=== PATIENT | male | born 1985 | race Caucasian/White ===

== ENCOUNTER 2021-09-26 17:23 | Observation (INO) | payer MEDICAID ==
[~2021-09-26] VITALS: Ht 175.3 cm; Wt 45.0 kg
[~2021-09-26 17:23] MED LIST: DOXYCYCL HYC100 MG PO; MUPIROCIN2 % EX
--- NOTE | 2021-09-26 17:48 | NUR ---
PT ESCORTED TO ROOM 16 FOR EVAL OF DIARRHEA AND WEAKNESS
[2021-09-26 19:37] LABS: HEMOGLOBIN 10.2 g/dl (14.0-18.0); IMMATURE GRANULOCYTES 1.4 % (0.0-5.0); MEAN CELL VOLUME 83.6 fL CALC (80.0-100.0); MEAN CORPUSCULAR HGB 28.4 pG CALC (26.0-32.0); NEUT# 7.04 thou/uL (1.82-7.42); RED BLOOD COUNT 3.59 mill/uL (4.70-6.10); RED CELL DISTRI WIDTH 13.7 % (11.5-15.5)
[2021-09-26 19:38] LABS: URINE BILIRUBIN - DIPSTICK NEGATIVE (NEGATIVE); URINE BLOOD DIPSTICK TRACE-INTACT (NEGATIVE); URINE COLOR YELLOW; URINE GLUCOSE - DIPSTICK NEGATIVE (NEGATIVE); URINE KETONE NEGATIVE (NEGATIVE); URINE LEUK ESTERASE NEGATIVE (NEGATIVE); URINE PH 6.5 (4.5-8.0); URINE PROTEIN - DIPSTICK NEGATIVE (NEG-TRACE); URINE SPECIFIC GRAVITY 1.015; URINE UROBILINOGEN - DIPSTICK 0.2 E.U./dL (0.2)
[2021-09-26 19:41] LABS: URINE NITRITE - DIPSTICK NEGATIVE (Negative)
--- NOTE | 2021-09-26 19:46 | NUR ---
PATIENT WAITING IN BED FOR RESULTS. RECEIVING FLUIDS AND IV MEDS.
[2021-09-26 19:53] LABS: ALBUMIN 3.5 g/dL (3.2-5.0); ALKALINE PHOSPHATASE 1139 u/l (38-126); ANION GAP 11 (6-22 (CALC)); BILIRUBIN, TOTAL 0.6 mg/dL (0.0-1.4); BUN 6 mg/dL (9-20); BUN/CREATININE RATIO 10 (12-20 (CALC)); CARBON DIOXIDE 23 mmol/l (22-30); CHLORIDE 101 mmol/l (95-108); CREATININE 0.7 mg/dL (0.7-1.3); GFR > 60 ML/MIN (>=60 (CALC)); GFR FOR AFR.AMER. > 60 ML/MIN (>=60 (CALC)); LIPASE 310 u/l (23-300); POTASSIUM 2.8 mmol/l (3.5-5.1); SGOT/AST 177 u/l (17-59); SODIUM 132 mmol/l (137-146); TOTAL PROTEIN 7.3 g/dL (6.3-8.2)
--- NOTE | 2021-09-26 22:31 | NUR ---
PT AWARE OF PLAN OF CARE; STATES NO FURTHER ASSISTANCE AT THIS TIME
--- NOTE | 2021-09-26 22:41 | NUR ---
PT TO CT
--- NOTE | 2021-09-27 00:50 | NUR ---
Admission Note Report Given to: JOSTIN Transported by: Wheelchair X Stretcher Transported with: X Nurse Transporter X Patent IV [employer] Manager Location: ICU X [facility]
--- NOTE | 2021-09-27 01:00 | NUR ---
RECEIVED INTO ICU BED 1 FROM ER VIA STRETCHER. AMBULATED FROM STRETCHER TO BED WITHOUT DIFFICULTY. ASSISTED INTO BED AND PLACED ON MARINE FIREMAN SHOWING SR-ST. ORIENTED TO SURROUNDINGS. CALL SANTO IN REACH.
[2021-09-27 01:20] VITALS: BP 114/65
--- NOTE | 2021-09-27 02:00 | NUR ---
RESTING WITH EYES CLOSED. RESP NON-LABORED. SR ON MONITOR.
[2021-09-27 04:00] VITALS: BP 117/69
--- NOTE | 2021-09-27 04:00 | NUR ---
RESTING WITHOUT COMPLAINTS. VSS. RESP EVEN AND UNLABORED. SR ON MONITOR.
[2021-09-27 05:39] LABS: HEMATOCRIT 27.1 % (39.0-50.0); HEMOGLOBIN 9.1 g/dl (14.0-18.0); MEAN CORPUSCULAR HGB 28.5 pG CALC (26.0-32.0); MEAN CORPUSCULAR HGB CONC 33.6 g/dL CAL (32.0-36.0); RED BLOOD COUNT 3.19 mill/uL (4.70-6.10); RED CELL DISTRI WIDTH 13.8 % (11.5-15.5)
[2021-09-27 05:48] LABS: BUN 4 mg/dL (9-20); BUN/CREATININE RATIO 5 (12-20 (CALC)); CARBON DIOXIDE 21 mmol/l (22-30); CREATININE 0.7 mg/dL (0.7-1.3); GFR > 60 ML/MIN (>=60 (CALC)); GFR FOR AFR.AMER. > 60 ML/MIN (>=60 (CALC)); POTASSIUM 3.1 mmol/l (3.5-5.1)
[2021-09-27 05:52] LABS: SODIUM 143 mmol/l (137-146)
[2021-09-27 05:53] LABS: ANION GAP 9 (6-22 (CALC)); CHLORIDE 116 mmol/l (95-108); MAGNESIUM 2.3 mg/dL (1.6-2.3)
--- NOTE | 2021-09-27 07:00 | NUR ---
ASSUMED CARE OF PT, RESTING IN BED DENIES NEEDS
[2021-09-27 08:00] VITALS: BP 125/76
--- NOTE | 2021-09-27 09:25 | NUR ---
S: ANURADHA MCGEE is a 35 M who presents with left-sided pneumonia. He has a history of HIV. All medications in patient's chart were reviewed. O: VS: BP 117/69, P 87, RR 20, T 99.1 W 45 kg, HT 69 in, Scr= 0.7 mg/dL, CrCl= 95 ml/min A: Blood culture is pending. Stool culture is pending. P: Patient is on Zosyn 3.375 gm IV Q6H. Vancomycin ordered for pharmacy to dose. Start Vancomycin 1 gm IV Q 12 H. Vancomycin trough is drawn before the 4th dose on 09/28/2021 at 0830. Vancomycin goal trough is between 15-20 mcg/ml. Pharmacy will follow and or advise on antibiotics use as needed.
--- NOTE | 2021-09-27 10:30 | NUR ---
UPDATED M[employer]LE [employer], EDUCATED PT ON TAKING MEDICATION AND FOLLOW UP.
[2021-09-27] MEDS ORDERED: LEVAQUIN750 M1 PO (12:07)
[2021-09-27] MEDS ORDERED: BACTRIM DS1 TAB PO (12:07)
--- NOTE | 2021-09-27 14:00 | NUR ---
PT DISCHARGED HOME VIA WHEELCHAIR OUT. PT INDICATED UNDERSTANDING OF DISCHARGE INSTRUCTIONS AND PRESCRIPTION INFO. ALL QUESTIONS ANSWERED
== END 2021-09-27 14:00 | disposition home or self-care (01) ==
LOC: ED 17:23 → ED-I 20:10 → ED 20:10 → ED-I 23:28 → ED 09-27 00:21 → ICU 09-27 00:22
PROVIDERS: Family Medicine; ADMIT Hospitalist; ATTEND Hospitalist
DX: U07.1 COVID-19 (principal); J12.82 Pneumonia due to coronavirus disease 2019; A08.39 Other viral enteritis; B20 Human immunodeficiency virus [HIV] disease; E87.6 Hypokalemia; E87.1 Hypo-osmolality and hyponatremia; F17.210 Nicotine dependence, cigarettes, uncomplicated
CPT/HCPCS: J3475; Q9967

== ENCOUNTER 2022-06-14 10:28 | Emergency (ER) | payer MEDICAID ==
[~2022-06-14] VITALS: Ht 175.3 cm; Wt 47.0 kg
[~2022-06-14 10:28] MED LIST changes: +BACTRIM DS1 TAB PO; +LEVAQUIN750 M1 PO
[2022-06-14 10:37] VITALS: BP 106/77
[2022-06-14 11:00] VITALS: BP 102/70
[2022-06-14 11:30] VITALS: BP 101/69
[2022-06-14 12:11] VITALS: BP 101/69
== END 2022-06-14 12:05 | disposition left against medical advice (07) ==
LOC: ED 10:28
DX: R10.9 Unspecified abdominal pain (principal); Z21 Asymptomatic human immunodeficiency virus [HIV] infection status; T37.5X6A Underdosing of antiviral drugs, initial encounter; Z91.128 Patient's intentional underdosing of medication regimen for other reason; F17.200 Nicotine dependence, unspecified, uncomplicated; Z91.19 Patient's noncompliance with other medical treatment and regimen